=== PATIENT | male | born 1970 | race Asian ===

== ENCOUNTER 2023-09-17 11:17 | Inpatient (IN) | payer OTHER ==
[2023-09-17 12:04] VITALS: BMI 27.6
[2023-09-17] MEDS ORDERED: METHOCARBAMOL 500 MG TABLET PO PRN (14:06)
[2023-09-17] MEDS ORDERED: ONDANSETRON *ODT* 4 MG TABLET SL PRN (14:06)
[2023-09-17] MEDS ORDERED: BENZOCAINE/MENTHOL (CHLORASEPTIC ) LOZENGE MM PRN (14:06)
[2023-09-17] MEDS ORDERED: POLYETHYLENE GLYCOL (HEALTHYLAX) 3350 17 GM PACKET PO PRN (14:06)
[2023-09-17] MEDS ORDERED: BENZONATATE 200 MG CAPSULE PO PRN (14:06)
[2023-09-17] MEDS ORDERED: MAGNESIUM HYDROX 2400MG/30ML ORAL SUSPENSION 30 ML CUP PO PRN (14:06)
[2023-09-17] MEDS ORDERED: BISMUTH SUBSALICYLATE 262 MG/15 ML BTL PO PRN (14:06)
[2023-09-17] MEDS ORDERED: ACETAMINOPHEN 325 MG TABLET (FP) PO PRN (14:06)
[2023-09-17] MEDS ORDERED: MAG HYDROX/AL HYDROX/SIMETH 30 ML UNIT-DOSE CUP PO PRN (14:06)
[2023-09-17] MEDS ORDERED: IBUPROFEN 400 MG TABLET (FP) PO PRN (14:06)
[2023-09-17] MEDS ORDERED: guaiFENesin 600 MG TABLET.ER (FP) PO PRN (14:06)
[2023-09-17] MEDS ORDERED: NALOXONE HCL 0.4 MG/ML VIAL IM PRN (14:06)
[2023-09-17] MEDS ORDERED: IBUPROFEN 600 MG TABLET (FP) PO PRN (14:06)
[2023-09-17] MEDS ORDERED: NALOXONE HCL (KLOXXADO) 8 MG SPRAY NS PRN (14:06)
[2023-09-17] MEDS ORDERED: DICYCLOMINE HCL 10 MG CAPSULE PO PRN (14:06)
[2023-09-17] MEDS ORDERED: LOPERAMIDE HCL 2 MG CAPSULE PO PRN (14:06)
[2023-09-17] MEDS: PRENATAL VITAMINS W/ FOLIC ACID TABLET (FP) PO SCH (15:22)
[2023-09-17] MEDS: MELATONIN 5 MG TABLETS PO SCH (22:21)
[2023-09-17] MEDS: THIAMINE HCL 100 MG TABLET (FP) PO SCH (22:21)
[2023-09-17] MEDS: CARVEDILOL 3.125 MG TABLET (FP) PO SCH (22:23)
[2023-09-17] MEDS: ATORVASTATIN CA 80 MG TABLET (FP) PO SCH (22:24)
[2023-09-17] MEDS: hydrOXYzine PAMOATE 25 MG CAPSULE (FP) PO PRN (22:25)
[2023-09-18] MEDS: PANTOPRAZOLE 20 MG TABLET PO SCH (09:45)
[2023-09-18] MEDS: FUROSEMIDE 40 MG TABLET (FP) PO SCH (09:45)
[2023-09-18] MEDS: amLODIPine BESYLATE 10 MG TABLET (FP) PO SCH (09:45)
[2023-09-18 14:38] LABS: HEMATOCRIT 33.4 % (35.4-49); HEMOGLOBIN 10.6 GM/dL (11.7-16.9); MCH 27.8 pg (25.7-33.7); MCHC 31.7 g/dl (32.0-35.9); MEAN CELL VOLUME 87.6 fl (80-96); MEAN PLT VOLUME 9.4 fl (7.5-11.1); PLATELET COUNT 226 10^3/uL (134-434); RBC 3.81 M/mm3 (4.00-5.60); RDW 22.9 % (11.9-15.9)
[2023-09-18 15:06] LABS: POTASSIUM 3.6 mmol/L (3.5-5.1)
[2023-09-18 15:21] LABS: ALBUMIN 3.5 g/dl (3.4-5.0); CALCIUM 8.6 mg/dL (8.5-10.1)
[2023-09-18 15:22] LABS: BLOOD UREA NITROGEN 9.9 mg/dL (7-18)
[2023-09-18 15:26] LABS: TOT PROT 8.6 g/dl (6.4-8.2)
[2023-09-18 15:28] LABS: CREATININE 1.5 mg/dL (0.55-1.3)
[2023-09-19 09:38] VITALS: BP 133/79; PULSE 79; RESP 16; TEMP 97.1
== END 2023-09-19 10:02 | disposition home or self-care (01) | DRG 775 ==
LOC: YASAS 11:17 → Y6N 13:43
PROVIDERS: ADMIT Allergy & Immunology; ATTEND Surgery
PROC: HZ2ZZZZ Detoxification Services for Substance Abuse Treatment (ICD-10-PCS; principal; 2023-09-17)
DX: F10.20 Alcohol dependence, uncomplicated (principal); I25.10 Atherosclerotic heart disease of native coronary artery without angina pectoris; I10 Essential (primary) hypertension; I25.2 Old myocardial infarction; E78.5 Hyperlipidemia, unspecified; G40.909 Epilepsy, unspecified, not intractable, without status epilepticus; K21.9 Gastro-esophageal reflux disease without esophagitis; Z87.891 Personal history of nicotine dependence; Z99.89 Dependence on other enabling machines and devices
CPT/HCPCS: 36415; 80053; 80307; 85027; 86780; 93005; 93010

== ENCOUNTER 2023-12-07 11:37 | Inpatient (IN) | payer OTHER ==
[2023-12-07 12:27] VITALS: BMI 28.0
[2023-12-07] MEDS ORDERED: LOPERAMIDE HCL 2 MG CAPSULE PO PRN (12:58)
[2023-12-07] MEDS ORDERED: IBUPROFEN 600 MG TABLET (FP) PO PRN (12:58)
[2023-12-07] MEDS ORDERED: MAG HYDROX/AL HYDROX/SIMETH 30 ML UNIT-DOSE CUP PO PRN (12:58)
[2023-12-07] MEDS ORDERED: NALOXONE HCL 0.4 MG/ML VIAL IM PRN (12:58)
[2023-12-07] MEDS ORDERED: DICYCLOMINE HCL 10 MG CAPSULE PO PRN (12:58)
[2023-12-07] MEDS ORDERED: ACETAMINOPHEN 325 MG TABLET (FP) PO PRN (12:58)
[2023-12-07] MEDS ORDERED: BENZONATATE 200 MG CAPSULE PO PRN (12:58)
[2023-12-07] MEDS ORDERED: guaiFENesin 600 MG TABLET.ER (FP) PO PRN (12:58)
[2023-12-07] MEDS ORDERED: ONDANSETRON *ODT* 4 MG TABLET SL PRN (12:58)
[2023-12-07] MEDS ORDERED: BISMUTH SUBSALICYLATE 524 MG/30 ML PO PRN (12:58)
[2023-12-07] MEDS ORDERED: LORazepam 1 MG TABLET PO PRN (12:58)
[2023-12-07] MEDS ORDERED: NALOXONE (NARCAN) HCL 4 MG/0.1 ML SPRAY NS PRN (12:58)
[2023-12-07] MEDS ORDERED: POLYETHYLENE GLYCOL (HEALTHYLAX) 3350 17 GM PACKET PO PRN (12:58)
[2023-12-07] MEDS ORDERED: BENZOCAINE/MENTHOL (CHLORASEPTIC ) LOZENGE MM PRN (12:58)
[2023-12-07] MEDS ORDERED: MAGNESIUM HYDROX 2400MG/30ML ORAL SUSPENSION 30 ML CUP PO PRN (12:58)
[2023-12-07] MEDS ORDERED: NICOTINE 7 MG/24 HOURS TOPICAL PATCH TD ONE (15:11)
[2023-12-07] MEDS: NICOTINE 7 MG/24 HOURS TOPICAL PATCH TD SCH (15:14)
[2023-12-07] MEDS: PRENATAL VITAMINS W/ FOLIC ACID TABLET (FP) PO SCH (15:15)
[2023-12-07] MEDS: ACAMPROSATE CALCIUM 333 MG TABLET.DR PO SCH ×2 (16:57→17:26)
[2023-12-07] MEDS: LORazepam 2 MG TABLET PO SCH (17:26)
[2023-12-07] MEDS: MELATONIN 5 MG TABLETS PO SCH (22:10)
[2023-12-07] MEDS: ATORVASTATIN CA 80 MG TABLET (FP) PO SCH (22:10)
[2023-12-07] MEDS: THIAMINE 100 MG TABLET PO SCH (22:10)
[2023-12-07] MEDS: CARVEDILOL 3.125 MG TABLET (FP) PO SCH (22:11)
[2023-12-07] MEDS: METHOCARBAMOL 500 MG TABLET PO PRN (23:11)
[2023-12-07] MEDS: IBUPROFEN 400 MG TABLET (FP) PO PRN (23:11)
[2023-12-08 11:16] LABS: POTASSIUM 4.1 mmol/L (3.5-5.1)
[2023-12-08 11:17] LABS: HEMOGLOBIN 9.9 GM/dL (11.7-16.9); MCH 29.3 pg (25.7-33.7); MCHC 32.9 g/dl (32.0-35.9); MEAN PLT VOLUME 9.7 fl (7.5-11.1); PLATELET COUNT 230 10^3/uL (134-434); RBC 3.37 M/mm3 (4.00-5.60); RDW 18.9 % (11.9-15.9); WHITE BLOOD COUNT 7.6 K/mm3 (4.0-10.0)
[2023-12-08 11:25] LABS: BLOOD UREA NITROGEN 10.2 mg/dL (7-18); CALCIUM 8.6 mg/dL (8.5-10.1)
[2023-12-08 11:26] LABS: ALBUMIN 3.4 g/dl (3.4-5.0)
[2023-12-08 11:29] LABS: CREATININE 1.2 mg/dL (0.55-1.3)
[2023-12-08 11:30] LABS: BILIRUBIN,TOTAL 0.6 mg/dL (0.2-1); TOT PROT 9.2 g/dl (6.4-8.2)
[2023-12-08] MEDS: amLODIPine BESYLATE 10 MG TABLET (FP) PO SCH (11:49)
[2023-12-08] MEDS: PANTOPRAZOLE 20 MG TABLET PO SCH (11:49)
[2023-12-08] MEDS: FUROSEMIDE 40 MG TABLET (FP) PO SCH (11:49)
[2023-12-09] MEDS: LORazepam 1 MG TABLET PO SCH (05:30)
[2023-12-09] MEDS: LACTULOSE 20 GM/30 ML UDC (FOR ORAL USE ONLY) PO SCH (13:28)
[2023-12-10] MEDS ORDERED: LORazepam 0.5 MG TABLET PO PRN
[2023-12-10] MEDS: LORazepam 0.5 MG TABLET PO SCH (05:26)
[2023-12-10] MEDS ORDERED: NALTREXONE HCL 50 MG TABLET PO SCH (17:00)
[2023-12-11] MEDS: hydrOXYzine PAMOATE 25 MG CAPSULE (FP) PO PRN (01:40)
[2023-12-11] MEDS: LORazepam 0.5 MG TABLET PO ONE (05:53)
[2023-12-11 09:15] VITALS: BP 112/66; PULSE 86; RESP 17; TEMP 96.9
== END 2023-12-11 12:43 | disposition home or self-care (01) | DRG 775 ==
LOC: YASAS 11:37 → Y6N 13:45
PROVIDERS: ADMIT Allergy & Immunology; ATTEND Surgery
PROC: HZ2ZZZZ Detoxification Services for Substance Abuse Treatment (ICD-10-PCS; principal; 2023-12-07)
DX: F10.230 Alcohol dependence with withdrawal, uncomplicated (principal); F19.24 Other psychoactive substance dependence with psychoactive substance-induced mood disorder; I25.10 Atherosclerotic heart disease of native coronary artery without angina pectoris; I10 Essential (primary) hypertension; Z95.1 Presence of aortocoronary bypass graft; I25.2 Old myocardial infarction; D50.9 Iron deficiency anemia, unspecified; K21.9 Gastro-esophageal reflux disease without esophagitis; G40.909 Epilepsy, unspecified, not intractable, without status epilepticus; R73.9 Hyperglycemia, unspecified; R79.89 Other specified abnormal findings of blood chemistry; Z99.89 Dependence on other enabling machines and devices; Z87.81 Personal history of (healed) traumatic fracture; Z87.891 Personal history of nicotine dependence
CPT/HCPCS: 36415; 80053; 80305; 80307; 82140; 82607; 82728; 82747; 83036; 83540; 83550; 85014; 85027; 86780; 90853

== ENCOUNTER 2023-12-12 13:39 | Inpatient (IN) | payer OTHER ==
[2023-12-12 17:23] VITALS: BMI 27.4
[2023-12-12] MEDS ORDERED: NALOXONE (NARCAN) HCL 4 MG/0.1 ML SPRAY NS PRN (17:48)
[2023-12-12] MEDS ORDERED: METHOCARBAMOL 500 MG TABLET PO PRN (17:48)
[2023-12-12] MEDS ORDERED: NALOXONE HCL 0.4 MG/ML VIAL IVPUSH PRN (17:48)
[2023-12-12] MEDS ORDERED: ACETAMINOPHEN 325 MG TABLET (FP) PO PRN (17:48)
[2023-12-12] MEDS ORDERED: IBUPROFEN 400 MG TABLET (FP) PO PRN (17:48)
[2023-12-12] MEDS ORDERED: LOPERAMIDE HCL 2 MG CAPSULE PO PRN (17:48)
[2023-12-12] MEDS ORDERED: POLYETHYLENE GLYCOL (HEALTHYLAX) 3350 17 GM PACKET PO PRN (17:48)
[2023-12-12] MEDS ORDERED: P-EPHED 60MG/TRIPROLIDI 2.5MG TABLET PO PRN (17:48)
[2023-12-12] MEDS ORDERED: MAGNESIUM HYDROX 2400MG/30ML ORAL SUSPENSION 30 ML CUP PO PRN (17:48)
[2023-12-12] MEDS ORDERED: BENZOCAINE/MENTHOL (CHLORASEPTIC ) LOZENGE MM PRN (17:48)
[2023-12-12] MEDS ORDERED: MAG HYDROX/AL HYDROX/SIMETH 30 ML UNIT-DOSE CUP PO PRN (17:48)
[2023-12-12] MEDS ORDERED: BENZONATATE 200 MG CAPSULE PO PRN (17:48)
[2023-12-12] MEDS ORDERED: guaiFENesin 600 MG TABLET.ER (FP) PO PRN (17:48)
[2023-12-12] MEDS: ATORVASTATIN CA 80 MG TABLET (FP) PO SCH (23:42)
[2023-12-12] MEDS: MELATONIN 5 MG TABLETS PO SCH (23:43)
[2023-12-12] MEDS: CARVEDILOL 3.125 MG TABLET (FP) PO SCH (23:43)
[2023-12-12] MEDS: THIAMINE 100 MG TABLET PO SCH (23:43)
[2023-12-13] MEDS: FOLIC ACID 1 MG TABLET (FP) PO SCH (09:52)
[2023-12-13] MEDS: FUROSEMIDE 40 MG TABLET (FP) PO SCH (09:53)
[2023-12-13] MEDS: amLODIPine BESYLATE 10 MG TABLET (FP) PO SCH (09:53)
[2023-12-13] MEDS: PANTOPRAZOLE 20 MG TABLET PO SCH (09:53)
[2023-12-13] MEDS: PRENATAL VITAMINS W/ FOLIC ACID TABLET (FP) PO SCH (09:53)
[2023-12-14] MEDS: IBUPROFEN 600 MG TABLET (FP) PO PRN (01:50)
[2023-12-18] MEDS: SUVOREXANT 5 MG TABLET PO PRN (21:03)
[2023-12-19] MEDS: ACAMPROSATE CALCIUM 333 MG TABLET.DR PO SCH (13:45)
[2023-12-19] MEDS: LACTULOSE 20 GM/30 ML UDC (FOR ORAL USE ONLY) PO SCH (13:45)
[2023-12-19] MEDS ORDERED: ATORVASTATIN CA 40 MG TABLET (FP) ONE (20:29)
[2023-12-20] MEDS ORDERED: ATORVASTATIN CA 40 MG TABLET (FP) ONE (20:40)
[2023-12-21] MEDS ORDERED: ATORVASTATIN CA 40 MG TABLET (FP) ONE (20:48)
[2023-12-22] MEDS ORDERED: ATORVASTATIN CA 40 MG TABLET (FP) ONE (20:48)
[2023-12-23] MEDS ORDERED: ATORVASTATIN CA 40 MG TABLET (FP) ONE (18:49)
[2023-12-24] MEDS ORDERED: ATORVASTATIN CA 40 MG TABLET (FP) ONE (20:41)
[2023-12-24] MEDS: SUVOREXANT 5 MG TABLET PO PRN (23:23)
[2023-12-25 06:22] VITALS: RESP 18
[2023-12-25] MEDS ORDERED: ATORVASTATIN CA 40 MG TABLET (FP) ONE (20:22)
[2023-12-26 06:48] VITALS: TEMP 98
[2023-12-26 08:57] VITALS: BP 128/81; PULSE 85
== END 2023-12-26 10:00 | disposition home or self-care (01) | DRG 772 ==
LOC: YASAS 13:39 → Y3E 23:00 → Y5N 12-19 11:25
PROVIDERS: ADMIT Allergy & Immunology; ATTEND Psychiatry & Neurology Pain Medicine
PROC: HZ42ZZZ Group Counseling for Substance Abuse Treatment, Cognitive-Behavioral (ICD-10-PCS; principal; 2023-12-12)
DX: F10.20 Alcohol dependence, uncomplicated (principal); F19.282 Other psychoactive substance dependence with psychoactive substance-induced sleep disorder; F19.24 Other psychoactive substance dependence with psychoactive substance-induced mood disorder; E72.20 Disorder of urea cycle metabolism, unspecified; G40.909 Epilepsy, unspecified, not intractable, without status epilepticus; I25.10 Atherosclerotic heart disease of native coronary artery without angina pectoris; I10 Essential (primary) hypertension; I25.2 Old myocardial infarction; Z95.1 Presence of aortocoronary bypass graft; K21.9 Gastro-esophageal reflux disease without esophagitis; M54.50 Low back pain, unspecified; G89.29 Other chronic pain; Z87.891 Personal history of nicotine dependence; Z87.19 Personal history of other diseases of the digestive system
CPT/HCPCS: 80305; 80307; 82140; 87811